=== PATIENT | female | born 1965 | race Caucasian/White ===

== ENCOUNTER → 2024-01-31 13:19 | Outpatient (REF) | payer BC, SELFPAY | LOC: HWRAD 13:19 | PROVIDERS: ATTENDING PHYSICIAN Obstetrics & Gynecology; FAMILY PHYSICIAN Physician Assistant Medical | DX: Z12.31 Encounter for screening mammogram for malignant neoplasm of breast (principal); R10.2 Pelvic and perineal pain | CPT/HCPCS: 76830; 76856; 77063; 77067 ==

== ENCOUNTER → 2025-06-28 12:44 | Outpatient (REF) | payer OTHER, SELFPAY | LOC: HWRAD 12:44 | PROVIDERS: ATTENDING PHYSICIAN Physician Assistant Medical | DX: R10.9 Unspecified abdominal pain (principal) | CPT/HCPCS: 76700 ==